=== PATIENT | female | born 1960 | race Caucasian/White ===

== ENCOUNTER 2017-11-23 20:30 | Emergency (ER) | payer OTHER ==
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
[2017-11-23 21:18] LABS: ABSOLUTE BASOPHIL COUNT 0.1 /CUMM (0.0-0.2); ABSOLUTE EOSINOPHIL COUNT 0.1 /CUMM (0.0-0.7); ABSOLUTE GRANULOCYTE CT 10.7 /CUMM (1.4-6.5); ABSOLUTE LYMPH COUNT 3.9 /CUMM (1.2-3.4); ABSOLUTE MONOCYTE COUNT 1.4 /CUMM (0.10-0.60); BASOPHIL % 0.4 % (0.0-2.0); EOSINOPHIL % 0.9 % (0-5); GRANULOCYTE % 65.9 % (42.2-75.2); HEMATOCRIT 42.9 % (37-47); MEAN CORPUSCULAR HGB 28.6 PG (27.0-31.0); MEAN CORPUSCULAR HGB CONC 32.5 G/DL (33.0-37.0); MEAN CORPUSCULAR VOLUME 88.2 FL (81.0-99.0); MEAN PLATELET VOLUME 8.8 FL (7.4-10.4); PLATELET COUNT 397 /CUMM (130-400); RBC DISTRIBUTION WIDTH 14.8 % (11.5-14.5); RED BLOOD CELL CT 4.87 /CUMM (4.20-5.40); WHITE BLOOD CELL COUNT 16.3 /CUMM (4.8-10.8)
--- NOTE | 2017-11-23 21:57 | CT SCAN REPORT ---
EXAMINATION: CT CHEST, ABDOMEN AND PELVIS WITHOUT CONTRAST CLINICAL INFORMATION: trauma, fell off horse, left sided rib pain COMPARISON: Lumbar spine MRI 03/07/2014. TECHNIQUE: Multidetector volumetric imaging was performed from the thoracic inlet through the pubic symphysis following the uneventful administration of: Oral contrast: No Intravenous contrast: No Sagittal and coronal reformatted images were obtained on the technologist workstation. FINDINGS: CHEST: LUNG: Moderate upper lobe predominant centrilobular and paraseptal emphysema. Mild bibasilar atelectasis. MEDIASTINUM: Lack of intravenous contrast limits evaluation of the mediastinum. The aorta is normal in caliber. Without IV contrast, there is limited assessment of traumatic aortic injury. Normal heart size. No pericardial effusion. Mildly enlarged left precarinal lymph node, 1.5 x 1.4 cm. Prominent but not pathologically enlarged subcarinal lymph node. Small amount of abnormal epicardial soft tissue is seen, measuring 10 x 6 x 9 mm. PLEURA: No significant effusion. No pleural mass or thickening. CHEST WALL/AXILLA: Unremarkable. ABDOMEN/PELVIS: LIVER, GALLBLADDER, AND BILIARY TREE: Lack of intravenous contrast limits evaluation of the liver particularly in the setting of trauma. There is a low-density lesion along the anterior margin of the left lobe of liver, most likely a cyst. No perihepatic fluid or hematoma seen. The gallbladder is unremarkable with no evidence of radiopaque gallstones, gallbladder wall thickening, or obvious pericholecystic inflammatory changes. PANCREAS: Limited noncontrast evaluation is normal. No mass or peripancreatic fluid. SPLEEN: The spleen is not seen. There is a left upper quadrant surgical clip. ADRENAL GLANDS: No adrenal mass. KIDNEYS AND URETERS: Limited noncontrast evaluation of the kidneys is normal. No hydronephrosis or calculi. GASTROINTESTINAL TRACT: Stomach is distended. Small bowel is nondilated. Although the appendix is not definitely seen, there are no right lower quadrant inflammatory changes to suggest acute appendicitis. There is scattered colonic diverticulosis without evidence of colitis or diverticulitis. ABDOMINAL WALL: No significant hernia is appreciated. LYMPHOVASCULAR STRUCTURES: Normal sized retroperitoneal lymph nodes are present. Normal caliber abdominal aorta. Moderate calcified atherosclerotic change. BLADDER: No focal mass or wall thickening seen. No bladder calculi. PELVIC VISCERA: The prostate and seminal vesicles are normal. OSSEOUS STRUCTURES: Evaluation for fractures is limited. Dedicated thin section bone reconstructed images were not obtained. No rib fracture seen. No sternal fracture. Multilevel degenerative changes of the thoracolumbar spine with no acute or suspicious osseous abnormality. There are degenerative changes of the bilateral sacroiliac joints and hips. IMPRESSION: No evidence of acute traumatic injury in the chest, abdomen, or pelvis although the study is limited by lack of intravenous contrast in the setting of trauma, as described above. Nonspecific abnormal epicardial soft tissue, possibly a lymph node, 10 x 6 x 9 mm. Mildly enlarged precarinal lymph node, nonspecific.
--- NOTE | 2017-11-23 21:59 | CT SCAN REPORT ---
EXAMINATION: CT HEAD WITHOUT CONTRAST CT CERVICAL SPINE WITHOUT CONTRAST CLINICAL INFORMATION: Trauma, fell off horse. COMPARISON: None TECHNIQUE: Axial images of the head and cervical spine were obtained without contrast. Reformatted images were reviewed. DLP: 1018 mGy-cm FINDINGS: HEAD CT: No acute intracranial hemorrhage or territorial infarction. No extra-axial fluid collection. No mass effect or midline shift. No abnormal attenuation within the brain parenchyma. No subgaleal hematoma. No calvarial fracture. Mastoid air cells are aerated. Mild mucosal thickening within ethmoid air cells. CERVICAL SPINE CT: No acute fracture or dislocation. There is straightening and slight reversal of normal cervical lordosis, which is a nonspecific finding. No prevertebral soft tissue swelling. No evidence of traumatic spondylolisthesis. No widening of the atlantoaxial interval. Multilevel degenerative endplate changes. Multilevel facet arthropathy. Changes of emphysema at the bilateral upper lungs. IMPRESSION: 1. No acute intracranial pathology. 2. No acute cervical spine pathology. 3. [id number] degenerative changes of the cervical spine.
[2017-11-23] MEDS ORDERED: IBUPROFEN800 M1 PO (22:21)
[2017-11-23] MEDS ORDERED: PERCOCET 5-3251 EACH PO (22:21)
[2017-11-23 22:27] VITALS: BP 132/88
[2017-11-27] MEDS ORDERED: PERCOCET 5-3251 EACH PO (14:38)
== END 2017-11-23 22:27 ==
LOC: ERH 20:30
PROVIDERS: Pediatrics
DX: S29.9XXA Unspecified injury of thorax, initial encounter (principal); V80.010A Animal-rider injured by fall from or being thrown from horse in noncollision accident, initial encounter; Y92.9 Unspecified place or not applicable; Y93.9 Activity, unspecified
CPT/HCPCS: 74176; 93005; 93010; 96361; 96374; 96376